=== PATIENT | male | born 1945 | race Caucasian/White ===

== ENCOUNTER → 2020-09-04 | Outpatient (CLI) | payer MEDICARE | LOC: EXRD 09:44 | DX: M54.5 Low back pain (principal); M46.1 Sacroiliitis, not elsewhere classified; M47.817 Spondylosis without myelopathy or radiculopathy, lumbosacral region | CPT/HCPCS: 72100 ==

== ENCOUNTER 2021-11-22 16:06 | Emergency (ER) | payer MEDICARE ==
[2021-11-22 17:02] LABS: HEMOGLOBIN 11.6 gm/dl (14.0-17.5); RED BLOOD COUNT 3.85 M/UL (4.20-5.50); WHITE BLOOD COUNT 5.7 K/UL (4.5-11.0)
[2021-11-22] MEDS ORDERED: OMNICEF 300 MG300 MG PO (18:15)
== END 2021-11-22 18:37 | disposition home or self-care (01) ==
LOC: ER1 16:06
PROVIDERS: Emergency Medicine
DX: N50.812 Left testicular pain (principal); N39.0 Urinary tract infection, site not specified; E11.9 Type 2 diabetes mellitus without complications
CPT/HCPCS: 76870; 80053; 81001; 85025; 87040; 87077; 87086; 87186; 96374; 96375; 99284; J0696; J2270; J2405